=== PATIENT | female | born 1985 | race Caucasian/White ===

== ENCOUNTER → 2016-11-04 | Outpatient (CLI) | payer BC ==
--- NOTE | 2016-11-04 13:13 | DI ---
XR HYSTEROSALPINGOGRAM,11/04/2016 9:09 AM: Clinical History: Infertility. Previous Exam: None at this facility. Procedure: Risks, benefits and alternatives were explained to the patient and informed written consen t obtained. The patient was placed supine on the fluoroscopy table., And a speculum placed within the vagina. The cervix was cleansed with Betadine solution. A 5 [place] catheter was then advanced into the uterus and the balloon expanded. Findings: Both fallopian tubes were opened with a normal appearance and with free spillage into the peritoneum. The balloon was then removed and images taken of the uterus which demonstrate a normal appearance. Impression: Normal hysterosalpingogram.
== END ==
LOC: RAD 09:02
PROVIDERS: ATTEND Obstetrics & Gynecology
DX: N97.9 Female infertility, unspecified (principal)
CPT/HCPCS: 74740